=== PATIENT | female | born 1985 | race Caucasian/White ===

== ENCOUNTER 2023-07-08 18:24 | Emergency (ER) | payer OTHER ==
[~2023-07-08] VITALS: Ht 152.4 cm; Wt 59.0 kg
[2023-07-08 18:45] VITALS: BP 112/57; PULSE 84; RESP 16; TEMP 98; O2SAT 100
[2023-07-08 19:48] LABS: BASOPHILS # (AUTO) 0.1 K/uL (0.00-0.22); BASOPHILS % (AUTO) 1.2 % (0.0-2.0); EOSINOPHILS # (AUTO) 0.2 K/uL (0-0.4); EOSINOPHILS % (AUTO) 2.6 % (0.0-4.0); HEMATOCRIT 33.2 % (36-48); HEMOGLOBIN 11.3 g/dL (12.0-16.0); LYMPHOCYTES # (AUTO) 2.3 K/uL (2.5-16.5); LYMPHOCYTES % (AUTO) 25.5 % (20.5-51.1); MEAN CORPUSCULAR HEMOGLOBIN 28 pg (27-31); MEAN CORPUSCULAR HGB CONC 34 g/dL (33-37); MEAN CORPUSCULAR VOLUME 82.4 fL (80-94); MONOCYTES # (AUTO) 0.6 K/uL (0.8-1.0); MONOCYTES % (AUTO) 6.3 % (1.7-9.3); NEUTROPHILS # (AUTO) 5.7 K/uL (1.8-7.7); NEUTROPHILS % (AUTO) 64.4 % (42.2-75.2); PLATELET COUNT (AUTO) 275 K/uL (140-450); RED BLOOD CELL COUNT(AUTO) 4.03 MIL/uL (4.20-5.40); RED CELL DISTRIBUTION WIDTH 13.8 % (11.6-13.7); WHITE BLOOD COUNT (AUTO) 8.9 K/uL (4.8-10.8)
[2023-07-08 20:04] LABS: ALBUMIN 3.4 g/dL (3.4-5.0); ANION GAP 9.7 (8-16); CALCIUM 8.3 mg/dL (8.5-10.1); CARBON DIOXIDE 28.5 mmol/L (21-32); CREATININE 0.5 mg/dL (0.6-1.3); POTASSIUM 3.2 mmol/L (3.5-5.1); TOTAL BILIRUBIN 0.4 mg/dL (0.0-1.0); TOTAL PROTEIN, SERUM 7.8 g/dL (6.4-8.2)
[2023-07-08] MEDS: POTASSIUM CHLORIDE 10 MEQ TABER PO ONE (21:24)
== END 2023-07-08 21:53 | disposition home or self-care (01) ==
LOC: MED 18:24
DX: O20.0 Threatened abortion (principal); O99.281 Endocrine, nutritional and metabolic diseases complicating pregnancy, first trimester; E87.6 Hypokalemia; Z3A.01 Less than 8 weeks gestation of pregnancy
CPT/HCPCS: 36415; 76817; 80053; 81025; 83690; 84702; 85025; 86886; 86900; 86901; 99284

== ENCOUNTER 2023-07-31 09:45 | Observation (INO) | payer OTHER ==
[~2023-07-31] VITALS: Ht 152.4 cm; Wt 58.1 kg
[2023-07-31 09:58] VITALS: BP 94/46; PULSE 75; RESP 18; TEMP 97.6; O2SAT 100
[2023-07-31 10:00] VITALS: O2SAT 100
[2023-07-31 10:49] LABS: BASOPHILS % (AUTO) 0.3 % (0.0-2.0); EOSINOPHILS # (AUTO) 0.1 K/uL (0-0.4); EOSINOPHILS % (AUTO) 1.3 % (0.0-4.0); HEMATOCRIT 31.7 % (36-48); HEMOGLOBIN 10.7 g/dL (12.0-16.0); LYMPHOCYTES # (AUTO) 1.5 K/uL (2.5-16.5); LYMPHOCYTES % (AUTO) 24.7 % (20.5-51.1); MEAN CORPUSCULAR HEMOGLOBIN 28 pg (27-31); MEAN CORPUSCULAR HGB CONC 34 g/dL (33-37); MEAN CORPUSCULAR VOLUME 82.6 fL (80-94); MONOCYTES # (AUTO) 0.6 K/uL (0.8-1.0); NEUTROPHILS % (AUTO) 64.7 % (42.2-75.2); PLATELET COUNT (AUTO) 265 K/uL (140-450); RED BLOOD CELL COUNT(AUTO) 3.84 MIL/uL (4.20-5.40); RED CELL DISTRIBUTION WIDTH 14.5 % (11.6-13.7); WHITE BLOOD COUNT (AUTO) 6.2 K/uL (4.8-10.8)
[2023-07-31 11:02] LABS: APPEARANCE,URINE CLEAR (CLEAR); BILIRUBIN,URINE NEGATIVE (NEGATIVE); BLOOD, URINE NEGATIVE (NEGATIVE); COLOR,URINE YELLOW (YELLOW); LEUKOCYTE ESTERASE ,URINE NEGATIVE (NEGATIVE); PROTEIN,URINE NEGATIVE (NEGATIVE); UGLUCOSE NEGATIVE (NEGATIVE); UROBILINOGEN,URINE 0.2 EU/dL (0.2 - 1)
[2023-07-31 11:12] LABS: NITRITE, URINE NEGATIVE (NEGATIVE)
[2023-07-31] MEDS ORDERED: ACETAMINOPHEN 325 MG TAB PO PRN (11:45)
[2023-07-31] MEDS ORDERED: KCL 20 MEQ IN 100 mL PREMIX 200 ML IV PRN (11:45)
[2023-07-31] MEDS ORDERED: MAG SULF 2000 MG/WATER PREMIX 50 ML IV PRN (11:45)
[2023-07-31] MEDS ORDERED: MORPHINE SULFATE 4 MG/ML SYR IVP PRN (11:45)
[2023-07-31] MEDS ORDERED: HYDROcodone/APAP 5/325 MG 1 TAB TAB PO PRN (11:45)
[2023-07-31] MEDS ORDERED: POTASSIUM CHLORIDE 10 MEQ TABER PO PRN (11:45)
[2023-07-31] MEDS ORDERED: LORazepam 1 MG TAB PO PRN (11:45)
[2023-07-31] MEDS ORDERED: ONDANSETRON 4 MG/2 ML VIAL IVP PRN (11:45)
[2023-07-31] MEDS ORDERED: ZOLPIDEM 5 MG TAB PO PRN (11:45)
[2023-07-31] MEDS ORDERED: [UNRECOGNIZED DRUG - CODE] PO (11:54)
[2023-07-31] MEDS ORDERED: LEVO0.0211 PO (11:54)
[2023-07-31] MEDS ORDERED: IBUP-2217 PO (11:54)
[2023-07-31] MEDS: NACL 0.9% 1,000 ML IV ONE (12:39)
[2023-07-31] MEDS: ACETAMINOPHEN EXTRA STRENGTH 500 MG TAB PO ONE (12:41)
[2023-07-31 15:15] VITALS: BP 118/60; PULSE 77; RESP 18; RESP 77; TEMP 98.1; O2SAT 98
[2023-07-31 17:23] LABS: ANION GAP 11.7 (8-16); CALCIUM 8.3 mg/dL (8.5-10.1); CARBON DIOXIDE 24.5 mmol/L (21-32); CREATININE 0.4 mg/dL (0.6-1.3); POTASSIUM 3.2 mmol/L (3.5-5.1)
[2023-07-31] MEDS ORDERED: fentaNYL citrate 0.05 MG/ML VIAL ONE (17:46)
[2023-07-31] MEDS ORDERED: PROPOFOL 200 MG/20 ML VIAL IV ONE (17:50)
[2023-07-31] MEDS ORDERED: SEVOFLURANE 250 ML BTL INH ONE (18:00)
[2023-07-31] MEDS ORDERED: SUCCINYLCHOLINE CHLORIDE 200 MG/10 ML VIAL IVP ONE (18:00)
[2023-07-31] MEDS ORDERED: MISOPROSTOL 200 MCG TAB ONE (18:55)
[2023-07-31] MEDS ORDERED: DEXAMETHASONE 4 MG/ML VIAL ONE ×2 (19:05)
[2023-07-31] MEDS: ONDANSETRON 4 MG/2 ML VIAL ONE (19:05)
[2023-07-31 22:00] VITALS: BP 112/65; PULSE 72; RESP 18; TEMP 98; O2SAT 98
[2023-07-31 22:50] VITALS: PULSE 72
[2023-08-01 00:04] VITALS: RESP 20; O2SAT 98
[2023-08-01 05:00] VITALS: PULSE 78
[2023-08-01 06:00] VITALS: BP 124/65; PULSE 78; RESP 18; TEMP 98.7; O2SAT 96
[2023-08-01 06:57] LABS: ANION GAP 11.7 (8-16); CALCIUM 8.9 mg/dL (8.5-10.1); CREATININE 0.4 mg/dL (0.6-1.3); POTASSIUM 3.7 mmol/L (3.5-5.1)
[2023-08-01 07:16] LABS: BASOPHILS % (AUTO) 0.1 % (0.0-2.0); HEMATOCRIT 28.9 % (36-48); HEMOGLOBIN 9.7 g/dL (12.0-16.0); LYMPHOCYTES # (AUTO) 0.9 K/uL (2.5-16.5); LYMPHOCYTES % (AUTO) 15.1 % (20.5-51.1); MEAN CORPUSCULAR HEMOGLOBIN 28 pg (27-31); MEAN CORPUSCULAR HGB CONC 34 g/dL (33-37); MEAN CORPUSCULAR VOLUME 83.3 fL (80-94); MONOCYTES # (AUTO) 0.2 K/uL (0.8-1.0); MONOCYTES % (AUTO) 3.7 % (1.7-9.3); NEUTROPHILS # (AUTO) 4.6 K/uL (1.8-7.7); NEUTROPHILS % (AUTO) 81.1 % (42.2-75.2); PLATELET COUNT (AUTO) 238 K/uL (140-450); RED BLOOD CELL COUNT(AUTO) 3.47 MIL/uL (4.20-5.40); RED CELL DISTRIBUTION WIDTH 14.2 % (11.6-13.7); WHITE BLOOD COUNT (AUTO) 5.7 K/uL (4.8-10.8)
[2023-08-01 08:00] VITALS: BP 105/61; PULSE 82; RESP 18; RESP 20; TEMP 98.7; O2SAT 96; O2SAT 98
[2023-08-01] MEDS ORDERED: MEDS-TO-BEDS MC SCH (09:00)
[2023-08-01] MEDS: MAGNESIUM OXIDE 400 MG TAB PO SCH (09:49)
[2023-08-01 18:24] VITALS: BP 105/59; PULSE 78; RESP 18; TEMP 98.3
[2023-08-01 20:02] VITALS: BP 108/58; PULSE 78; RESP 18; TEMP 98; O2SAT 99
== END 2023-08-01 19:25 | disposition home or self-care (01) ==
LOC: MED 09:45 → MMU 11:46 → MTU 14:56
PROVIDERS: ADMIT Internal Medicine; ATTEND Internal Medicine
DX: O02.1 Missed abortion (principal); D64.9 Anemia, unspecified; Z3A.08 8 weeks gestation of pregnancy
CPT/HCPCS: 36415; 59820; 80048; 81003; 83735; 84702; 85025; 88305; 99284; G0378; J0330; J1100; J2405; J2704; J3010; J7030